=== PATIENT | female | born 2000 | race Caucasian/White ===

== ENCOUNTER 2022-07-30 17:43 | Emergency (ER) | payer BC ==
[2022-07-30] MEDS ORDERED: Ondansetron 4 MG Tab.DIS PO ONE (20:00)
[2022-07-30] MEDS ORDERED: diphenhydrAMINE 50 MG Cap PO ONE (20:01)
[2022-07-30] MEDS ORDERED: Ketorolac 60 MG/2 ML SDV IM ONE (20:02)
== END 2022-07-30 20:42 | disposition home or self-care (01) ==
LOC: MW.ED 17:43 → MERGE 17:43 → MW.ED 20:42
DX: R51.9 Headache, unspecified (principal); Z88.0 Allergy status to penicillin; Z91.010 Allergy to peanuts; Z91.018 Allergy to other foods
CPT/HCPCS: 96372; 99283; A9270; J1885

== ENCOUNTER 2023-04-07 17:51 | Emergency (ER) | payer BC ==
[2023-04-07] MEDS ORDERED: traMADol 50 MG Tab PO ONE (20:10)
== END 2023-04-07 20:40 | disposition home or self-care (01) ==
LOC: MW.ED 17:51
DX: S63.502A Unspecified sprain of left wrist, initial encounter (principal); Z88.0 Allergy status to penicillin; Z88.6 Allergy status to analgesic agent; Z91.010 Allergy to peanuts; Z91.018 Allergy to other foods; W19.XXXA Unspecified fall, initial encounter
CPT/HCPCS: 73110; 99283; A9270